=== PATIENT | male | born 2000 | race Caucasian/White ===

== ENCOUNTER 2019-12-20 21:14 | Emergency (ER) | payer BC ==
[2019-12-20 21:30] VITALS: BP 154/21
--- NOTE | 2019-12-20 21:33 | UC ---
Ear Complaint HPI - HPI Summary HPI Summary: 19-year-old male presents with sudden onset of left ear pain approximately 7:30 PM this evening. States he has had some mild to moderate nasal congestion that started today. Denies fever, chills, ear drainage, tinnitus, vertigo, sore throat, or cough. - History of Current Complaint Chief Complaint: UCEar Stated Complaint: EAR COMPLAINT Time Seen by Provider: 12/20/19 21:20 Hx Obtained From: Patient Pain Intensity: 4 - Allergies/Home Medications Allergies/Adverse Reactions: Allergies Allergy/AdvReac Type Severity Reaction Status Date / Time No Known Allergies Allergy Verified 12/20/19 21:22 Home Medications: Home Medications Ibuprofen TAB* [Advil TAB*] 400 mg PO Q6H PRN 12/20/19 [History Confirmed ] Terbinafine HCl [Lamisil] 125 ml TP DAILY PRN 12/20/19 [History Confirmed ] terbinafine HCL [Terbinafine HCl] 250 mg PO DAILY 12/20/19 [History Confirmed ] PMH/Surg Hx/FS Hx/Imm Hx Previously Healthy: Yes - Denies significant PMH - Surgical History Surgical History: Yes Surgery Procedure, Year, and Place: [facility]. T&A. B/L tubes. Sx repair Tib/Fib - Family History Known Family History: Positive: Non-Contributory - Social History Occupation: Student Lives: With Family Alcohol Use: None Substance Use Type: None Smoking Status (MU): Never Smoked Tobacco Review of Systems All Other Systems Reviewed And Are Negative: Yes Constitutional: Negative: Fever, Chills Eyes: Negative: Drainage, Eye Redness ENT: Positive: Ear Ache, Nasal Discharge, Sinus Congestion. Negative: Sore Throat, Sinus Pain/Tenderness Respiratory: Negative: Cough Cardiovascular: Positive: Negative Gastrointestinal: Positive: Negative Genitourinary: Positive: Negative Musculoskeletal: Positive: Negative Neurological/Mental Status: Positive: Negative Physical Exam - Summary Physical Exam Summary: GENERAL APPEARANCE: Well developed, well nourished, alert and cooperative, and appears to be in no acute distress. EYES: Conjunctiva clear. No drainage. EARS: Right external auditory canals and tympanic membranes clear. Left external auditory canal erythematous with mild edema. TM opaque with good cone of light. Hearing grossly intact. NOSE: Mild-moderate nasal congestion. No nasal discharge. THROAT: Pharynx normal. Surgically absent tonsils. Uvula midline. NECK: Neck supple, non-tender without lymphadenopathy. CARDIAC: Normal S1 and S2. No S3, S4 or murmurs. Rhythm is regular. There is no peripheral edema, cyanosis or pallor. Extremities are warm and well perfused. Capillary refill is less than 2 seconds. Peripheral pulses intact. LUNGS: Clear to auscultation without rales, rhonchi, wheezing or diminished breath sounds. ABDOMEN: Positive bowel sounds. Soft, nondistended, nontender. No guarding or rebound. No masses or hepatosplenomegally. MUSKULOSKELETAL: ROM intact to all extremities. No joint erythema or tenderness. Normal muscular development. Normal gait. SKIN: Skin normal color, texture and turgor with no lesions or eruptions. Triage Information Reviewed: Yes Vital Signs: Initial Vital Signs Temp 98.2 F 12/20/19 21:24 Pulse 74 12/20/19 21:24 Resp 16 12/20/19 21:24 BP 154/21 12/20/19 21:24 Pulse Ox 100 12/20/19 21:24 Vital Signs Reviewed: Yes Ear Complaint Course/Dx - Course Course Of Treatment: 19-year-old male presents with sudden onset of left ear pain approximately 7:30 PM this evening. States he has had some mild to moderate nasal congestion that started today. Denies fever, chills, ear drainage, tinnitus, vertigo, sore throat, or cough. Afebrile. Vital signs stable. Patient's exam was remarkable for a left external auditory canal that was erythematous with mild edema. The left TM was opaque with good cone of light. Remainder of exam was unremarkable. Patient was given neomycin/Polymyxin B/hydrocortisone otic drops to instill 4 drops into the affected ear 4 times a day until he is pain free for 24 hours. He was given the first dose in the clinic. Additionally recommending symptomatic treatment including [id number] analgesics as needed for pain. He is to follow-up with his primary care provider in 3 days if symptoms are not improving. Anticipatory guidance and warning symptoms were reviewed with the patient. Verbalized understanding and agrees with plan of care. - Differential Dx/Diagnosis Differential Diagnosis/HQI/PQRI: Cerumen Impaction, Otitis Externa, Otitis Media , Perforated TM, URI Provider Diagnosis: Otitis externa of left ear Discharge ED - Sign-Out/Discharge Documenting (check all that apply): Patient Departure All imaging exams completed and their final reports reviewed: No Studies - Discharge Plan Condition: Stable Disposition: HOME Patient Education Materials: Otitis Externa (ED) Referrals: Ash Downing MD [Primary Care Provider] - 3 Days (If no improvement.) Additional Instructions: You have an infection of the left ear canal called otitis externa (swimmer's ear ). Use the neomycin/polymyxin B/hydrocortisone ear drops. Instill 4 drops into the affected ear 4 times a day until after you have been pain free for 23 hours. Use acetaminophen (Tylenol) or ibuprofen (Advil, Motrin) according directions as needed for pain. Follow-up with your primary care provider in 3 days if symptoms are not improving. Seek immediate medical attention in the emergency room if you develop fever greater than 100.5 F, have severe pain that is not managed with pain medication , drainage or bleeding from the ear, loss of hearing, or any worsening of symptoms. - Billing Disposition and Condition Condition: STABLE Disposition: Home - Attestation Statements Provider Attestation: This patient was not seen by me. I was available for consult. Chart reviewed. ESTELA
[2019-12-20] MEDS ORDERED: Neomyc/Polym/HC 1% OTIC SUSP* **OTIC LEFT EAR ONE (21:40)
== END 2019-12-20 22:00 | disposition home or self-care (01) ==
LOC: UCCORT 21:14
DX: H60.92 Unspecified otitis externa, left ear (principal); R05 Cough; R09.89 Other specified symptoms and signs involving the circulatory and respiratory systems
CPT/HCPCS: 99212; A9270-GY; G0463

== ENCOUNTER 2019-12-22 17:20 | Emergency (ER) | payer BC ==
[2019-12-22 17:50] VITALS: BP 152/84
--- NOTE | 2019-12-22 17:55 | UC ---
Ear Complaint HPI - HPI Summary HPI Summary: seen 2 days ago dx with otitis externa rx with a/b drops ---now has vertigo with nausea and voming head and behind ears feels congested no fevers - History of Current Complaint Chief Complaint: UCGeneralIllness Stated Complaint: LEFT EAR INFECTION SEEN 12/20./VOMITING/DIZZY Time Seen by Provider: 12/22/19 17:53 Hx Obtained From: Patient Onset/Duration: Sudden Onset, Lasting Days - 2, Worse Since - today Pain Intensity: 0 Aggravating Factors: Cold Alleviating Factors: Nothing Associated Signs/Symptoms: Positive: URI Symptoms - Allergies/Home Medications Allergies/Adverse Reactions: Allergies Allergy/AdvReac Type Severity Reaction Status Date / Time No Known Allergies Allergy Verified 12/22/19 17:51 PMH/Surg Hx/FS Hx/Imm Hx Previously Healthy: Yes - Surgical History Surgical History: Yes Surgery Procedure, Year, and Place: [facility]. T&A. B/L tubes. Sx repair Tib/Fib - Family History Known Family History: Positive: Non-Contributory - Social History Occupation: Employed Full-time Lives: With Family Alcohol Use: None Substance Use Type: None Smoking Status (MU): Never Smoked Tobacco Review of Systems All Other Systems Reviewed And Are Negative: Yes Constitutional: Positive: Negative Skin: Positive: Negative Eyes: Positive: Negative ENT: Positive: Ear Ache - resolving left Respiratory: Positive: Negative Cardiovascular: Positive: Negative Gastrointestinal: Positive: Negative Genitourinary: Positive: Negative Motor: Positive: Negative Neurovascular: Positive: Negative Musculoskeletal: Positive: Negative Neurological/Mental Status: Positive: Other - vertigo with nausea/vomiting Psychological: Positive: Negative Is Patient Immunocompromised?: No Physical Exam Triage Information Reviewed: Yes Appearance: Well-Appearing, No Pain Distress, Well-Nourished Vital Signs: Initial Vital Signs Temp 98 F 12/22/19 17:42 Pulse 75 12/22/19 17:42 Resp 14 12/22/19 17:42 BP 152/84 12/22/19 17:42 Pulse Ox 100 12/22/19 17:42 Vital Signs Reviewed: Yes Eye Exam: Normal Eyes: Positive: Conjunctiva Clear, Other: - no nystagmus, perrla, eomi ENT Exam: Normal ENT: Positive: Normal ENT inspection, Hearing grossly normal, Pharynx normal, Nasal congestion, TMs normal, Sinus tenderness, Uvula midline, Other - left canal with slight redness. Negative: Trismus, Muffled voice, Hoarse voice Dental Exam: Normal Neck exam: Normal Neck: Positive: Supple, Nontender, No Lymphadenopathy Respiratory Exam: Normal Respiratory: Positive: Chest non-tender, Lungs clear, Normal breath sounds, No respiratory distress, No accessory muscle use Cardiovascular Exam: Normal Cardiovascular: Positive: RRR, Pulses Normal, Brisk Capillary Refill Musculoskeletal Exam: Normal Musculoskeletal: Positive: Strength Intact, ROM Intact, No Edema Neurological Exam: Normal Neurological: Positive: Alert, Muscle Tone Normal, Other: - no deficits Psychological Exam: Normal Psychological: Positive: Normal Response To Family Skin Exam: Normal Ear Complaint Course/Dx - Course Course Of Treatment: will treat with antivert and flonase continue ear drops follow with pcp this week if symptoms fail to resolve to ed if symptoms worsen - Differential Dx/Diagnosis Provider Diagnosis: Vertigo Discharge ED - Sign-Out/Discharge Documenting (check all that apply): Patient Departure All imaging exams completed and their final reports reviewed: No Studies - Discharge Plan Condition: Stable Disposition: HOME Prescriptions: Fluticasone NASAL SPRAY 50MCG* [Flonase NASAL SPRAY 50MCG*] 2 spray BOTH NARES DAILY #1 btl Meclizine TAB* [Antivert 12.5 TAB*] 25 mg PO TID PRN #15 tab PRN Reason: vertigo Patient Education Materials: Vertigo (ED), How to Use Nasal Traphill (ED) Forms: *Work Release Referrals: Ash Downing MD [Primary Care Provider] - 2 Days - Billing Disposition and Condition Condition: STABLE Disposition: Home - Attestation Statements Provider Attestation: This patient was not seen by me. I was available for consult. Chart reviewed. ESTELA
[2019-12-22] MEDS ORDERED: Meclizine TAB* 12.5 MG PO ONE (18:07)
== END 2019-12-22 18:25 | disposition home or self-care (01) ==
LOC: UCCORT 17:20
DX: R42 Dizziness and giddiness (principal); R11.2 Nausea with vomiting, unspecified
CPT/HCPCS: 99212; A9270-GY; G0463